=== PATIENT | male | born 1995 | race Caucasian/White ===

== ENCOUNTER 2016-03-10 00:05 | Emergency (ER) | payer OTHER ==
[2016-03-10 00:21] VITALS: BP 123/77; PULSE 75; TEMP 97.8; BMI 27.3
--- NOTE | 2016-03-10 01:17 | PDOC ---
History of Present Illness - General Chief Complaint: Injury Stated Complaint: FALL, NECK AND LWR BACK PAIN Time Seen by Provider: 03/10/16 00:57 History Source: Patient Exam Limitations: No Limitations - History of Present Illness Initial Comments: CHIEF COMPLAINT: 20 y/o afebrile male with no significant PMH c/o left sided neck pain and right low back pain s/p fall 2 days ago. HISTORY OF PRESENT ILLNESS: The patient states he slipped on black ice 2 days ago. He denies head trauma, LOC, midline neck pain, n/v/d, changes in vision/ hearing. He states yesterday he noticed left sided neck pain and today he woke up with right low back pain. He tried taking Aleve and excedrin with little relief. Vital signs on arrival are within normal limits. REVIEW OF SYSTEMS: GENERAL/CONSTITUTIONAL: No fever/chills. No weakness. No weight change. HEAD, EYES, EARS, NOSE AND THROAT: No change in vision. No ear pain or discharge. No sore throat. CARDIOVASCULAR: No chest pain or shortness of breath. MUSCULOSKELETAL: No joint or muscle swelling or pain. +left neck pain and right low back pain. SKIN: No rash or easy bruising. NEUROLOGIC: No headache, vertigo, loss of consciousness, or loss of sensation. PHYSICAL EXAM: GENERAL: The patient is awake, alert, and fully oriented, in no acute distress. HEAD: Normal with no signs of trauma. ENT: Pupils equal, round and reactive to light, extraocular movements intact, sclera anicteric, conjunctiva clear. NECK: No midline cervical spine TTP. Reproducible pain with palpation of left SCM muscle. BACK: No midline lumbar spine TTP or step offs. Reproducible pain with palpation of right lumbar paravertebral muscles. EXTREMITIES: Normal range of motion, no edema. NEUROLOGICAL: Normal speech, normal gait. CN II-XII grossly intact. PSYCH: Normal mood, normal affect. SKIN: Warm, dry, normal turgor, no rashes or lesions noted. Past History - Past Medical History Allergies/Adverse Reactions: Allergies Allergy/AdvReac Type Severity Reaction Status Date / Time No Known Allergies Allergy Verified 03/10/16 00:15 Home Medications: Ambulatory Orders NK [No Known Home Medication] 03/10/16 Other medical history: migraines - Psycho/Social/Smoking Cessation Hx Suicidal Ideation: No Smoking History: Current every day smoker Number of Cigarettes Smoked Daily: 1 Information on smoking cessation initiated: Yes 'Breaking Loose' booklet given: 03/10/16 Substance Use Type: None *Physical Exam - Vital Signs Last Vital Signs Temp Pulse Resp BP Pulse Ox 97.8 F 75 18 123/77 98 03/10/16 00:15 03/10/16 00:15 03/10/16 00:15 03/10/16 00:15 03/10/16 00:15 Medical Decision Making - Medical Decision Making A/P: 20 y/o male with left neck strain and muscular LBP s/p slip and fall 2 days ago. Plan is to give PO motrin and d/c to home. Instructed the patient to take 600mg of Motrin every 6 hours for pain, apply heating pad, massage and stretch affected areas to help with pain. The patient verbalizes understanding of all instructions, has no further questions and is awaiting discharge. *DC/Admit/Observation/Transfer Diagnosis at time of Disposition: Neck muscle strain Qualifiers: Encounter type: initial encounter Qualified Code(s): S16.1XXA - Strain of muscle, fascia and tendon at neck level, initial encounter Low back pain Qualifiers: Chronicity: acute Back pain laterality: right Sciatica presence: without sciatica Qualified Code(s): M54.5 - Low back pain - Discharge Dispostion Disposition: HOME Condition at time of disposition: Good - Referrals Referrals: Nash Mcintyre [Primary Care Provider] - Call tomorrow - Patient Instructions Printed Discharge Instructions: DI for Neck Sprain, DI for Low Back Pain Additional Instructions: Discharge Instructions: -Take 600mg of Ibuprofen every 6 hours for pain with food -Apply heat and massage to affected areas -Stretch affected areas multiple times per day -Follow up with your doctor within 1 week -Return to the ER with any worsening or concerning symptoms
[2016-03-10] MEDS ORDERED: IBUPROFEN 600 MG TABLET (FP) PO ONE ×2 (01:20→01:28)
== END 2016-03-10 01:29 | disposition home or self-care (01) ==
LOC: JERFT 00:05 → JER 00:05 → JERFT 01:29
DX: S16.1XXA Strain of muscle, fascia and tendon at neck level, initial encounter (principal); W00.0XXA Fall on same level due to ice and snow, initial encounter; Y93.89 Activity, other specified; Y92.410 Unspecified street and highway as the place of occurrence of the external cause; M54.5 Low back pain; F17.210 Nicotine dependence, cigarettes, uncomplicated
CPT/HCPCS: 99281-25